=== PATIENT | female | born 1970 | race Caucasian/White ===

== ENCOUNTER 2016-10-22 08:15 | Day surgery (SDC) | payer BC ==
[~2016-10-22] VITALS: Ht 160 cm; Wt 70.8 kg
[~2016-10-22 08:15] MED LIST: CEFAZOLIN SOD 1 GM in D5W 50 ML IV ONE
[2016-10-22] MEDS ORDERED: SEVOFLURANE 15 MIN GAS INH ONE (11:25)
[2016-10-22] MEDS ORDERED: KETOROLAC TROMETHAMINE 30 MG VIAL IVP ONE (11:25)
[2016-10-22] MEDS ORDERED: MIDAZOLAM HCL 5 MG/5 ML VIAL IVP ONE (11:25)
[2016-10-22] MEDS ORDERED: ALFENTANIL HCL 1000 MCG/2 ML AMP IVP ONE (11:25)
[2016-10-22] MEDS ORDERED: SUCCINYLCHOLINE CHLORIDE 20 MG/ML(QUELICIN) IVP ONE (11:25)
[2016-10-22] MEDS ORDERED: NS 1000 ML BAG IV ONE (11:25)
[2016-10-22] MEDS ORDERED: DEXAMETHASONE SOD PHOSPHATE 4 MG/ML VIAL IVP ONE (11:25)
[2016-10-22] MEDS ORDERED: PROPOFOL 200MG/ 20ML VIAL (DIPRIVAN) IV ONE (11:25)
[2016-10-22] MEDS ORDERED: NS IRRIG SOLN 1000 ML IR ONE (11:25)
[2016-10-22] MEDS ORDERED: HYDROmorphone 1 MG INJ. 1 MG/ML AMPUL IVP PRN (12:30)
[2016-10-22] MEDS ORDERED: MEPERIDINE HCL/PF 25 MG/ML DISP.SYRIN IVP PRN (12:30)
[2016-10-22] MEDS ORDERED: HYDROmorphone 2 MG/ML VIAL IVP PRN ×2 (12:30)
[2016-10-22] MEDS ORDERED: LR 1,000 ML IV SCH (12:30)
[2016-10-22] MEDS ORDERED: HYDROcodone/ACETAMIN 5-325 MG TAB (NORCO/ VICODIN) PO PRN (12:45)
[2016-10-22] MEDS ORDERED: ONDANSETRON HCL 4 MG/2 ML VIAL IVP PRN (12:45)
[2016-10-22] MEDS ORDERED: OXYCODONE/ACETAMINOPHEN 5-325 TABLET PO PRN ×2 (12:45)
[2016-10-22 14:00] VITALS: BP_SYST 121
== END 2016-10-22 14:00 | disposition home or self-care (01) ==
LOC: SDS 08:15 → SMU 08:17 → SDS 14:00
PROVIDERS: ATTEND Specialist
DX: N84.0 Polyp of corpus uteri (principal)
CPT/HCPCS: 58300; 58558; 88305; J0330; J0690; J1100; J1885; J2250; J2704; J3490; J7030; J7060; J7120